=== PATIENT | female | born 1970 | race Caucasian/White ===

== ENCOUNTER 2017-05-07 14:43 | Emergency (ER) | payer OTHER ==
--- NOTE | 2017-05-07 15:55 | ER PHYSICIAN DOCUMENTATION ---
Physician Documentation [facility] Name:Crissy La Age:46 yrs Sex:Female :1970 Arrival Date:05/07/2017 Time:14:43 Bed1 Private MD: Ryan Mckeon Disposition: 05/07 15:37 Chart complete. tl1 Disposition: 05/07/17 15:29 Discharged to Home/Self Care. Impression: Acute Myofascial Strain. - Condition is Good. - Discharge Instructions: MARIA L WRAP, CRUTCH WALKING. - Medical Reconciliation form form. - Follow up: Private Physician; When: 7 - 10 days; Reason: Recheck today's complaints, Continuance of care. - Problem is new. - Symptoms have improved. HPI: 15:00 This 46 yrs old Female presents to ER via Private Vehicle with complaints of tl1 Leg Injury - RIGHT. 15:00 The patient presents with pain, that is acute. The complaints affect the right calf. tl1 15:30 She is normallly fairly sedentary and lives in [place]. Since arriving here in 3 days ago tl1 she has been hiking quite a bit. Today, after hiking for several hours, near the end of her hike, she felt a sharp pain in her right calf as she was just starting to walk. She was able to continue her hike with quite a bit of discomfort and came to the ED. No other complaint.. Historical: - Allergies: PCN; Novocain; - Home Meds: 1. Centrum Ultra Women's 18-400 mg-mcg oral tab 1 tab once daily with food 2. Valacyclovir Oral - PMHx: None; - PSHx: Hysterectomy; Cholecysectomy; - Tetanus: < 10 years. - Ebola Screening: : Patient negative for fever greater than or equal to 101.5 degrees Fahrenheit, and additional compatible Ebola Virus Disease symptoms. Patient denies exposure to infectious person. Patient denies travel to an Ebola-affected area in the 21 days before illness onset. No symptoms or risks identified at this time. . - Immunization history: Flu Vaccine None. - Social history: Smoking status: Patient states was never smoker of tobacco. ROS: 15:32 MS/extremity: Positive for pain, of the right calf. tl1 15:32 All other systems are negative. Exam: 15:32 Constitutional: This is a well developed, well nourished patient who is awake, alert, tl1 and in no acute distress. 15:32 Head/Face: Normocephalic, atraumatic. tl1 15:32 Cardiovascular: Rate: normal. 15:32 Respiratory: the patient does not display signs of respiratory distress, Respirations: normal. 15:32 Musculoskeletal/extremity: Extremities: grossly normal except: noted in the right calf: pain, tenderness, There is no evidence of decreased ROM, deformity, ecchymosis, erythema, rash. 15:32 Skin: Exam negative for acute changes. 15:32 Neuro: grossly normal. Vital Signs: 14:52 BP 179 / 93; Pulse 93; Resp 17; Pulse Ox 93% ; Weight 90.72 kg; Height 5 ft. 5 in. rh (165.10 cm); 14:52 Body Mass Index 33.28 (90.72 kg, 165.10 cm) rh MDM: 15:09 Patient medically screened. tl1 15:33 Differential diagnosis: gastoc/soleus strain. Data reviewed: vital signs, nurses notes, tl1 and as a result, I will discharge patient. Counseling: I had a detailed discussion with the patient and/or guardian regarding: the historical points, exam findings, and any diagnostic results supporting the discharge/admit diagnosis, the need for outpatient follow up, to return to the emergency department if symptoms worsen or persist or if there are any questions or concerns that arise at home. Response to treatment: There is no appreciated change of the patient's symptoms at this time, and as a result, I will discharge patient. Special discussion: crutch walking with weight bearing as tolerated. F/U with ortho/PT after returning home next week.. Dispensed Medications: No medications were administered Signatures: Radha Weber, Ryan Augustine RN, cb, MD MD tl1
--- NOTE | 2017-05-07 15:55 | ER NURSING DOCUMENTATION ---
Nurse's Notes [facility] Name:Crissy La Age:46 yrs Sex:Female :1970 Arrival Date:05/07/2017 Time:14:43 Bed1 Private MD: Diagnosis:Acute Myofascial Strain Presentation: 05/07 14:47 Acuity: JACOB 4 rh 14:52 Presenting complaint: Patient states: R calf pain after hiking 7-8 miles. Transition of cb care: patient was not received from another setting of care. Notified ED Physician of patient's arrival and CC Dr. Ewing notified. 14:52 Method Of Arrival: Private Vehicle cb Triage Assessment: 14:57 General: Appears in no apparent distress, well groomed, Behavior is cooperative. Pain: cb Complains of pain in lateral aspect of right calf, right calf and medial aspect of right calf Pain currently is 2 out of 10 on a pain scale. At worst was 8 out of 10 on a pain scale. Quality of pain is described as burning. EENT: No deficits noted. Neuro: No deficits noted. Cardiovascular: Pulses are 2+ in right dorsalis pedis artery. Respiratory: Airway is patent Trachea midline Respiratory effort is even, unlabored, Respiratory pattern is regular, symmetrical. GI: Reports tolerance of fluids, tolerance of food. : No deficits noted. Derm: No deficits noted. 15:05 Musculoskeletal: Circulation, motion, and sensation intact Capillary refill < 3 seconds cb Range of motion limited in right calf especially with walking Reports pain in right calf since hiking 7 miles. No fall involved with injury, worse with walking. Injury Description: unknown. Historical: - Allergies: PCN; Novocain; - Home Meds: 1. Centrum Ultra Women's 18-400 mg-mcg oral tab 1 tab once daily with food 2. Valacyclovir Oral - PMHx: None; - PSHx: Hysterectomy; Cholecysectomy; - Tetanus: < 10 years. - Ebola Screening: : Patient negative for fever greater than or equal to 101.5 degrees Fahrenheit, and additional compatible Ebola Virus Disease symptoms. Patient denies exposure to infectious person. Patient denies travel to an Ebola-affected area in the 21 days before illness onset. No symptoms or risks identified at this time. . - Immunization history: Flu Vaccine None. - Social history: Smoking status: Patient states was never smoker of tobacco. Screenin:01 Infectious Disease Risk None. Abuse screen: Denies threats or abuse. Denies injuries cb from another. Nutritional screening: No deficits noted. Vital Signs: 14:52 BP 179 / 93; Pulse 93; Resp 17; Pulse Ox 93% ; Weight 90.72 kg; Height 5 ft. 5 in. rh (165.10 cm); 14:52 Body Mass Index 33.28 (90.72 kg, 165.10 cm) ED Course: 14:46 Patient arrived in ED. dp 14:47 Triage completed. 14:52 Radha Weber, DILCIA is Primary Nurse. cb 15:01 Valuables Remains with patient Patient has correct armband on for positive cb identification. Bed in low position. Call light in reach. Adult w/ patient. 15:08 Ice pack to injury. cb 15:09 Ryan Ewing MD is Attending Physician. tl1 15:45 Matt wrap to right calf patient did not want crutches @ this time. Patient did walk cb around room to test her pain to ambulate without crutches. Administered Medications: No medications were administered Outcome: 15:29 Discharge ordered by . tl1 15:51 Discharged to home ambulatory, with family. cb 15:51 Condition: good 15:51 Discharge Assessment: Patient awake, alert and oriented x 3. No cognitive and/or functional deficits noted. Patient verbalized understanding of disposition instructions. 15:51 Discharge instructions given to patient, Instructed on discharge instructions, follow up and referral plans. Demonstrated understanding of instructions. 15:53 Patient left the ED. cb 05/08 08:40 Discharge F/U Call: Spoke with: patient. Signatures: Radha Weber, Ryan Augustine RN, cb, MD MD tl1 Katie Santana Dina Tobin dp
== END 2017-05-07 15:54 | disposition home or self-care (01) ==
LOC: ER 14:43
DX: S86.911A Strain of unspecified muscle(s) and tendon(s) at lower leg level, right leg, initial encounter (principal); X50.9XXA Other and unspecified overexertion or strenuous movements or postures, initial encounter; Y92.838 Other recreation area as the place of occurrence of the external cause; Y93.01 Activity, walking, marching and hiking
CPT/HCPCS: 99282